=== PATIENT | male | born 1950 | race Caucasian/White ===

== ENCOUNTER 2019-02-05 08:00 | Inpatient (IN) | payer MEDICARE, OTHER ==
[~2019-02-05 08:00] MED LIST: CEFAZOLIN 2 Gram 2 GM/50 ML BAG IVPB ONE; CELECOXIB 100 MG CAPSULE PO ONE; FAMOTIDINE 20MG TABLET PO ONE; METOCLOPRAMIDE 10 MG TABLET PO ONE; RINGERS SOLUTION,LACTATED 1,000 ML IV ONE; SCOPOLAMINE 1 PATCH TDSY TD ONE; VANCOMYCIN 1GM/200ML PREMIX 1 GM/200 ML PIGGYBACK IVPB ONE
[2019-02-05] MEDS ORDERED: RINGERS SOLUTION,LACTATED 1,000 ML IV ONE ×2 (10:30→12:50)
[2019-02-05 10:52] LABS: ABO GROUP O; ANTIBODY SCREEN NEGATIVE (NEGATIVE); RH TYPE POSITIVE
[2019-02-05] MEDS ORDERED: HYDROCODONE/APAP 5/325MG TABLET PO PRN ×2 (11:23)
[2019-02-05] MEDS ORDERED: KETOROLAC 30 MG/ML VIAL IVP PRN ×2 (11:23)
[2019-02-05] MEDS ORDERED: ACETAMINOPHEN 325 MG TAB PO PRN (11:23)
[2019-02-05] MEDS ORDERED: HYDROMORPHONE HCL 2 MG/ML VIAL IM PRN ×2 (11:23)
[2019-02-05] MEDS ORDERED: DIPHENHYDRAMINE HCL 25 MG CAPSULE PO PRN (11:23)
[2019-02-05] MEDS ORDERED: ACETAMINOPHEN W/ CODEINE 300MG/60MG TABLET PO PRN ×2 (11:23)
[2019-02-05] MEDS ORDERED: TRAMADOL HCL 50 MG TABLET PO PRN ×2 (11:23)
[2019-02-05] MEDS ORDERED: MAGNESIUM HYDROXIDE 30 ML UDC PO PRN (11:23)
[2019-02-05] MEDS ORDERED: ACETAMINOPHEN W/ CODEINE 300MG/30MG TABLET PO PRN ×2 (11:23)
[2019-02-05] MEDS ORDERED: PROMETHAZINE HCL 12.5 MG in 0.9 % SODIUM CHLORIDE 100ML 50 ML IVPB PRN (11:23)
[2019-02-05] MEDS ORDERED: NALOXONE 0.4 MG/1 ML VIAL IVP PRN (11:23)
[2019-02-05] MEDS ORDERED: BISACODYL 10 MG SUPP RC PRN (11:23)
[2019-02-05] MEDS ORDERED: ZOLPIDEM TARTRATE 5 MG TABLET PO PRN (11:23)
[2019-02-05] MEDS ORDERED: METOCLOPRAMIDE HCL 10 MG/2 ML VIAL IVP PRN (11:23)
[2019-02-05] MEDS ORDERED: HYDROCODONE/APAP 7.5/325MG TABLET PO PRN (11:23)
[2019-02-05] MEDS ORDERED: ONDANSETRON HCL IV 4 MG/2 ML VIAL IVP PRN (11:23)
[2019-02-05] MEDS ORDERED: AL HYDROX/MAG HYDROX 30ML UD PO PRN (11:23)
[2019-02-05] MEDS ORDERED: BUPIVACAINE LIPOSOME 266MG/20ML VIAL SQ ONE (12:37)
[2019-02-05] MEDS ORDERED: BUPIVACAINE 0.5% W/EPI MPF 30 ML VIAL SQ ONE (12:37)
[2019-02-05] MEDS ORDERED: VANCOMYCIN HCL 3,000 MG in RINGERS SOLUTION,LACTATED 3,000 ML IVPB ONE (12:37)
[2019-02-05] MEDS ORDERED: DEXTROSE 5 % AND 0.9 % NACL 1,000 ML IV PRN (14:30)
[2019-02-05] MEDS ORDERED: ACETAMINOPHEN 500 MG TABLET PO ONE (15:36)
[2019-02-05] MEDS ORDERED: PROPOFOL 10 MG/ML VIAL IV ONE (16:07)
[2019-02-05] MEDS ORDERED: LIDOCAINE 2% MDV (20MG/ML) 20ML VIAL IV ONE (16:07)
[2019-02-05] MEDS ORDERED: KETAMINE HCL 100MG/1ML VIAL INJ ONE (16:07)
[2019-02-05] MEDS ORDERED: GLYCOPYRROLATE 0.2 MG/ML ML IV ONE (16:07)
[2019-02-05] MEDS ORDERED: FENTANYL PF 100MCG/2ML VIAL IV ONE (16:07)
[2019-02-05] MEDS ORDERED: MIDAZOLAM HCL 2MG/2ML VIAL IV ONE (16:07)
[2019-02-05] MEDS ORDERED: KETOROLAC 30 MG/ML VIAL IVP ONE (16:07)
[2019-02-05] MEDS: HYDROCODONE/APAP 7.5/325MG TABLET PO PRN ×2 (16:17→20:40)
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
[2019-02-05] MEDS: FERROUS SULFATE 325 MG TAB PO SCH (21:32)
[2019-02-05] MEDS: DOCUSATE SODIUM 100 MG CAPSULE PO SCH (21:32)
[2019-02-05] MEDS: VANCOMYCIN 1GM/200ML PREMIX 1 GM/200 ML PIGGYBACK IVPB SCH (22:59)
[2019-02-06] MEDS: CYCLOBENZAPRINE 10MG TABLET PO PRN ×2 (00:43→12:52)
[2019-02-06] MEDS: HYDROCODONE/APAP 7.5/325MG TABLET PO PRN ×6 (00:43→21:05)
--- NOTE | 2019-02-06 04:57 | RADIOLOGY REPORT ---
EXAM: LEFT HIP HISTORY: STATUS POST LEFT TOTAL HIP ARTHROPLASTY. TECHNIQUE: A single portable view of the left hip was performed. Comparison: None. FINDINGS: The patient is status post left total hip arthroplasty. The orthopedic components are normal in appearance. There is no fracture or dislocation. IMPRESSION: STATUS POST LEFT TOTAL HIP ARTHROPLASTY WITH NO COMPLICATING FEATURES IDENTIFIED. JOB NUMBER: [id number] MTDD
[2019-02-06 07:03] LABS: HEMATOCRIT 33.9 % (42.0-52.0)
[2019-02-06] MEDS: VANCOMYCIN 1GM/200ML PREMIX 1 GM/200 ML PIGGYBACK IVPB SCH (10:59)
[2019-02-06] MEDS: FERROUS SULFATE 325 MG TAB PO SCH ×2 (11:00→21:03)
[2019-02-06] MEDS: DOCUSATE SODIUM 100 MG CAPSULE PO SCH ×2 (11:00→21:03)
[2019-02-06] MEDS: CELECOXIB 100 MG CAPSULE PO SCH (11:00)
[2019-02-06] MEDS: RIVAROXABAN 10 MG TABLET PO SCH (11:00)
--- NOTE | 2019-02-06 11:46 | Physical Therapy Tx Note ---
Physical Therapy Tx Note - Treatment Note Tolerated: Good Total Time Spent With Patient: 25 Physical Therapy Tx Note: Detail (The patient was in bed with minimal complaints of L hip pain. The patient was independent with supine to and from sit transfer. The patient ambulated with standard walker a distance of 65 feet x 1 WBAT on the L LE independently. The patient ambulated on 3 steps with folded walker and railing with supervision for safety using proper technique. The patient completed THR HEP including heel slides, hip abduction, gluteal sets, quad sets, hamstring sets, and ankle pumps. Patient was able to identify THR precautions. The patient has met all inpatient PT Goals, however the patient feels unsure of stairs. PT will return this pm for one more stairclimbing session.) Physical Therapy Problem List: Detail (1) Decreased L LE strength) Physical Therapy Goals: 1) The patient will be independent with THR HEP and demonstrate good understanding of THR precautions. 2) The patient will ambulate on stairs with supervision for safety using proper technique. Physical Therapy Plan: PT 1-2 times a day M-F for gait training on stairs and instruction in HEP.
--- NOTE | 2019-02-06 12:58 | Physical Therapy Tx Note ---
Physical Therapy Tx Note - Treatment Note Physical Therapy Tx Note: Detail (The patient declined PT this pm stating he fe lt fine on the stairs. Patient has met all inpatient PT goals and is discharged from inpatient PT.) Physical Therapy Problem List: Detail (1) Decreased L LE strength) Physical Therapy Goals: 1) The patient will be independent with THR HEP and demonstrate good understanding of THR precautions. (Goal Met). 2) The patient will ambulate on stairs with supervision for safety using proper technique. (Goal Met) Physical Therapy Plan: The patient has met all inpatient PT goals and is discharged from from inpatient PT. The patient is to continue with Home PT.
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
[2019-02-07] MEDS: HYDROCODONE/APAP 7.5/325MG TABLET PO PRN ×2 (02:02→07:58)
[2019-02-07 06:35] LABS: HEMATOCRIT 34.3 % (42.0-52.0); HEMOGLOBIN 11.2 gm/dl (14.0-18.0)
[2019-02-07] MEDS: DOCUSATE SODIUM 100 MG CAPSULE PO SCH (09:58)
[2019-02-07] MEDS: FERROUS SULFATE 325 MG TAB PO SCH (09:58)
[2019-02-07] MEDS: CELECOXIB 100 MG CAPSULE PO SCH (09:58)
[2019-02-07] MEDS: RIVAROXABAN 10 MG TABLET PO SCH (09:58)
--- NOTE | 2019-02-14 06:09 | Operative Note ---
DATE: 02/05/2019. PREOPERATIVE DIAGNOSIS: ENDSTAGE LEFT HIP ARTHROSIS. POSTOPERATIVE DIAGNOSIS: ENDSTAGE LEFT HIP ARTHROSIS. PROCEDURE: Left total hip arthroplasty. SURGEON: Dimitri Dillard M.D. ANESTHESIA: Spinal. ANESTHESIOLOGIST: Marino Carvalho CRNA. COMPLICATIONS: None. BLOOD LOSS: 200 mL. OPERATIVE FINDINGS: Severe [id number] arthrosis. Severe deformity and flattening of the femoral head. COMPONENTS PLACED: A total of 2.0 gm of Vancomycin cement. A [employer] cemented synergy stem collared size 14 high offset with a 56-mm, 3-hole Reflexion acetabular shell with two screw caps, a centrally threaded screw cap, and one acetabular screw 40 mm, and a 35-degree high-crosslinked liner. INDICATIONS FOR OPERATION: This is a 68-year-old male who has had severe endstage hip arthrosis for several years. He has failed nonoperative treatment and could barely ambulate. He was scheduled for a hip replacement. I explained the risks and benefits of surgery in detail for diagnosis and procedures. These include but are not limited to infection and the fact that he had multiple caries preoperatively in his teeth and I required him to go for dental service at the [facility]. He did this and had several teeth pulled. They did save some in the front. He needs to take strict care of his teeth to prevent further caries and take care of them immediately if there are any problems due to the risk of infection with his hip replacement. The risks also include nerve injury, vessel injury, periprosthetic fracture, need for resection arthroplasty, the fact that components can loosen, injury to nerves and vessels, blood clot, the need for further procedures, limb length discrepancy, and the need for anticoagulation to prevent blood clots, and the risks associated with his medications. All of his questions were answered. The treatment and course were outlined, and he agreed to proceed. PROCEDURE: The patient was brought to the operating room and placed in the right lateral decubitus position. His left hip and lower extremity were prepped and draped in sterile fashion. Prepped with ChloraPrep and draped. Intraoperative time out was performed. Next, we marked an incision using a posterior approach to the hip. It was infiltrated with 0.5% Marcaine with epinephrine, Exparel, and tranexamic acid mixture. The skin and subcutaneous tissue was dissected down to the gluteal fascia. The gluteal fascia was split longitudinally and the subgluteal plane was bluntly dissected. Self retainers were brought in. Identified the sciatic nerve and were careful to protect it at all times. We took short external rotators and exposed the capsule. Incised the capsule and inverted it in a T fashion. We then dislocated the femoral head. It was severely deformed with a flattened, oval shape. Resected about 1.5 above the lesser trochanter through the box osteotome. Started reaming by hand, and then worked in 1.0-mm increments up to a size 14. We stopped there as it was a good fit and we had preoperatively had measured it to be that size. Next, we broached at 12 and 15 degrees of anteversion and calcar planed off that, and then a 13 and then a 14 and had a good fit. Stopped there. Next, attention was turned to the acetabulum. We released the capsule anteriorly and inferiorly. We placed the inferior acetabular retractor and a Hohmann retractor anteriorly. I then retracted the proximal femur out of the way and had good exposure. I resected some of the capsule and labrum around the periphery. I started reaming in 1.0-mm increments at 45 degrees of inclination and 20 degrees of anteversion until we reamed up to a size 55 mm medially and had a good peripheral fit. We stopped there and trialed a 56 shell and it fit nicely. I irrigated the acetabulum copiously and changed gloves. I then impacted down the real Reflection acetabular shell with the helicopter guide, again at 45 degrees inclination and 20 degrees of anteversion. I verified it was flush medially. Next we drilled a posterior central superior quadrant screw hole and inserted the 40-mm screw. Next I placed a trial liner and did a trial reduction. Best combination of range of motion and stability and limb lengths was with a 32 + 0.0 mm femoral head component. This allowed for symmetric leg lengths, good abductor tensioning, and stability with flexion and internal rotation to 80 degrees before the hip dislocated. Next, we removed all of the trial components and irrigated the acetabular shell closely. I placed the two screw caps and the centrally threaded screw cap. I placed the real, 35-degree hooded, high-crosslinked polyethylene liner within the posterosuperior quadrant. I packed that down and verified it was interlocked. Next, I irrigated the femoral canal copiously and placed the cement restricter distally and injected the cement with third-generation cement technique through the suction catheter. I then impacted down the real femoral stem, again at 15 degrees of anteversion, until the collar was flush with the medial calcar. I held it there until the cement hardened. Next I cleaned and dried the trunnion and impacted down the real femoral head component. I re-reduced the hip and found that range of motion felt the same and limb lengths were equal. Next, we irrigated the hip joint copiously and we injected our mixture deep into the external rotators and abductors and then worked out superficially to the gluteal and subcutaneous with our injection mixture. Next, we closed the gluteal fascia with running #2 Quill suture securely. We closed the skin with #2-0 Vicryl. Provisional sterile dressing applied with Acticoat. This will be changed to a BIJAL dressing prior to discharge. Abduction pillow. Postoperative x-ray showed a good fit and orientation of the component. The patient tolerated the procedure well with no intraoperative complications. All sponge, needle, and blade counts were correct. He was sent to the recovery room stable and neurovascularly intact. He will be discharged to the floor and will likely be discharged home tomorrow. JOB NUMBER: [id number] [facility]
== END 2019-02-07 11:30 | disposition home health service (06) | DRG 470 ==
LOC: MEDSURG 09:57
PROVIDERS: ADMIT Orthopaedic Surgery; ATTEND Orthopaedic Surgery
PROC: 0SRB069 Replacement of Left Hip Joint with Oxidized Zirconium on Polyethylene Synthetic Substitute, Cemented, Open Approach (ICD-10-PCS; principal; 2019-02-05 12:00)
DX: M16.12 Unilateral primary osteoarthritis, left hip (principal)
CPT/HCPCS: 85014; 85018; 86850; 86900; 86901; C1776; J1885; J3370; J3490; J7120